=== PATIENT | male | born 1995 ===

== ENCOUNTER 2022-07-15 15:08 | Emergency (ER) | payer OTHER ==
[~2022-07-15] VITALS: Ht 177.8 cm; Wt 64.4 kg
[~2022-07-15 15:08] MED LIST: CONCERTA54 MG/BOTT; TESSALON200 MG PO
== END 2022-07-15 16:43 | disposition home or self-care (01) ==
LOC: ER 15:08
DX: S01.81XA Laceration without foreign body of other part of head, initial encounter (principal); V49.9XXA Car occupant (driver) (passenger) injured in unspecified traffic accident, initial encounter; Y93.9 Activity, unspecified; Y92.413 State road as the place of occurrence of the external cause; Y99.9 Unspecified external cause status